=== PATIENT | male | born 1960 | race Caucasian/White ===

== ENCOUNTER 2017-01-14 00:15 | Day surgery (SDC) | payer OTHER ==
[~2017-01-14] VITALS: Ht 182.9 cm; Wt 150.0 kg
[~2017-01-14 00:15] MED LIST: AMLO10TA3 PO; CARV25TA2 PO; FLEC150T PO; FUR20 PO; PRE20 PO; WARF5TAB7 PO
[2017-01-14 09:55] VITALS: BP 120/83; PULSE 77; RESP 16; O2SAT 95
[2017-01-14] MEDS ORDERED: WARF5TAB7 PO (10:18)
--- NOTE | 2017-01-14 10:21 | NUR ---
Admit [facility]STA Admitted to [facility] about 929. VSS. Tele Aflutter. Denies pain. IV started and labs sent. Procedure and recovery reviewed and verbalizes understanding. See EMR for further info and assessment. Awaiting MD.
[2017-01-14 10:48] LABS: BASOPHILS % (AUTO) 0.4 % (0-3); EOSINOPHILS % (AUTO) 2.3 % (0-5); MONOCYTES % (AUTO) 8.6 % (4-12); Mean Corpuscular Hemoglobin 28.9 pg (27.0-35.0); Mean Corpuscular Volume 83.1 fL (81-100); NEUTROPHILS % (AUTO) 55.3 % (40-74); Platelet Count 244 bil/L (150-400)
[2017-01-14 10:49] LABS: INR 1.8 ratio
--- NOTE | 2017-01-14 12:40 | NUR ---
Procedure cancelled/Discharge Fingerstick INR 2.[address] Basurto in to see pt. and decision made to Reschedule for JOHN?cardioversion. Office notified. Discharge instructions given, see sheets. Verbalizes understanding. IV discontinued intact. Discharged ambulatory with all belongings in no distress. Addendum: 01/14/17 at 1244 by JANE HARKINS RN Discharged at 1220
== END 2017-01-14 23:59 | disposition home or self-care (01) ==
LOC: SOUO 00:15
PROVIDERS: ATTEND Internal Medicine Cardiovascular Disease
DX: I48.0 Paroxysmal atrial fibrillation (principal); Z53.09 Procedure and treatment not carried out because of other contraindication; Z79.01 Long term (current) use of anticoagulants; Z95.810 Presence of automatic (implantable) cardiac defibrillator; I42.0 Dilated cardiomyopathy; Z79.899 Other long term (current) drug therapy